=== PATIENT | female | born 2000 | race Caucasian/White ===

== ENCOUNTER 2023-01-31 16:56 | Inpatient (IN) | payer BC ==
[~2023-01-31] VITALS: Ht 170.2 cm; Wt 59.0 kg
[2023-01-31 17:32] VITALS: BP_SYST 96; PULSE 122; RESP 18; TEMP 100.9; O2SAT 97
[2023-01-31] MEDS ORDERED: cefTRIAXone 1 GM in D5W 50 ML IV ONE (17:45)
[2023-01-31] MEDS ORDERED: NACL 0.9% 1,000 ML IV ONE (17:45)
[2023-01-31] MEDS ORDERED: ONDANSETRON HCL 4 MG/2 ML VIAL IVP ONE (17:45)
[2023-01-31] MEDS ORDERED: ACETAMINOPHEN 500 MG TABLET PO ONE (17:45)
[2023-01-31 18:09] LABS: COVID19 ANTIGEN SOFIA FIA NEGATIVE (NEGATIVE)
[2023-01-31 18:10] LABS: INFLUENZA TYPE A Negative (NEGATIVE); INFLUENZA TYPE B NEGATIVE (NEGATIVE)
[2023-01-31 18:37] LABS: RED CELL DISTRIBUTION WIDTH 12.8 % (9.0-15.0)
[2023-01-31 18:52] LABS: ALANINE AMINOTRANSFERASE 42 U/L (12-78); ALBUMIN 3.1 g/dL (3.4-4.8); ANION GAP 7 (5-15); ASPARTATE AMINOTRANSFERASE 27 U/L (10-37); CALCIUM 8.5 mg/dL (8.4-11.0); CARBON DIOXIDE 27 mmol/L (23-29); CHLORIDE 99 mmol/L (98-107); CREATININE 0.84 mg/dL (0.55-1.30); GFR AFRICAN AMERICAN 109 mL/min (>90); GFR NON AFRICAN-AMERICAN 90 mL/min (>90); GLUCOSE 116 mg/dL (74-106); POTASSIUM 3.8 mmol/L (3.5-5.1); SODIUM SERUM 133 mmol/L (136-145); TOTAL BILIRUBIN 0.3 mg/dL (0.0-1.0); TOTAL PROTEIN, SERUM 6.4 g/dL (6.4-8.3); UREA NITROGEN, BLOOD 13 mg/dL (8-21)
[2023-01-31 18:55] LABS: HEMATOCRIT 37.8 % (36-48); HEMOGLOBIN 12.2 g/dL (12.0-16.0); MEAN CORPUSCULAR HEMOGLOBIN 27 pg (27-31); MEAN CORPUSCULAR HGB CONC 32 % (32-36); MEAN CORPUSCULAR VOLUME 82 fL (79.0-98.0); PLATELET COUNT (AUTO) 206 K/uL (130-430); WHITE BLOOD COUNT (AUTO) 17.6 K/uL (4.8-10.8)
[2023-01-31 19:14] LABS: BAND % (MANUAL) 8 % (0-6); BASOPHILS % (MANUAL) 0 % (0-2); EOSINOPHILS % (MANUAL) 0 % (0-7); LYMPHOCYTES % (MANUAL) 4 % (20-46); MONOCYTES % (MANUAL) 11 % (0-11)
[2023-01-31 19:15] LABS: PLATELET ESTIMATE ADEQUATE (ADEQUATE)
[2023-01-31 19:21] LABS: BILIRUBIN,URINE NEGATIVE (NEGATIVE); CLARITY/URINE CLEAR (CLEAR); COLOR,URINE YELLOW (YELLOW); GLUCOSE,URINE NEGATIVE (NEGATIVE); KETONES,URINE NEGATIVE (NEGATIVE); LEUKOCYTE ESTERASE ,URINE 1+ (NEGATIVE); NITRITE, URINE NEGATIVE (NEGATIVE); PROTEIN URINE 1+ (NEGATIVE)
[2023-01-31 19:31] LABS: BLOOD, URINE TRACE (NEGATIVE)
[2023-01-31 19:33] LABS: BACTERIA,URINE FEW /HPF (None Seen); MUCUS,URINE None Seen /LPF (None Seen); RBC,URINE NONE SEEN /HPF (0-3)
[2023-01-31] MEDS ORDERED: cefTRIAXone 1 GM IVPB PREMIX 50 ML IV ONE (19:45)
[2023-01-31] MEDS ORDERED: ACETAMINOPHEN 500 MG TABLET ONE (20:32)
[2023-01-31] MEDS ORDERED: ONDANSETRON HCL 4 MG/2 ML VIAL ONE (20:34)
[2023-01-31] MEDS ORDERED: ONDANSETRON HCL 4 MG/2 ML VIAL IVP PRN (23:00)
[2023-01-31 23:40] VITALS: BP_SYST 100; PULSE 86; RESP 17; TEMP 98.6; O2SAT 98
[2023-02-01] MEDS: LR 1,000 ML IV SCH ×3 (00:17→18:18)
[2023-02-01] MEDS: PIPERACILLIN/TAZO 3.375/DEX-IS 50 ML IV SCH ×4 (00:49→18:24)
[2023-02-01] MEDS: ACETAMINOPHEN 325 MG TABLET PO PRN ×5 (03:01→20:23)
[2023-02-01 05:54] LABS: HEMATOCRIT 33.3 % (36-48); HEMOGLOBIN 10.6 g/dL (12.0-16.0); LYMPHOCYTES # (AUTO) 0.5 K/uL (1.0-5.5); LYMPHOCYTES % (AUTO) 3.4 % (20.5-51.5); MEAN CORPUSCULAR HEMOGLOBIN 26 pg (27-31); MEAN CORPUSCULAR HGB CONC 32 % (32-36); MEAN CORPUSCULAR VOLUME 83 fL (79.0-98.0); MONOCYTES # (AUTO) 1.9 K/uL (0.0-1.0); MONOCYTES % (AUTO) 12.3 % (1.7-9.3); NEUTROPHILS # (AUTO) 12.7 K/uL (1.8-7.7); NEUTROPHILS % (AUTO) 84.3 % (40.0-70.0); PLATELET COUNT (AUTO) 185 K/uL (130-430); RED BLOOD CELL COUNT(AUTO) 4.02 MIL/uL (4.2-6.2); RED CELL DISTRIBUTION WIDTH 12.6 % (9.0-15.0); WHITE BLOOD COUNT (AUTO) 15.1 K/uL (4.8-10.8)
[2023-02-01 08:00] VITALS: BP_SYST 118; PULSE 84; RESP 18; TEMP 99; O2SAT 100; O2SAT 99
[2023-02-01 08:45] LABS: ALBUMIN 2.6 g/dL (3.4-4.8); CALCIUM 8.8 mg/dL (8.4-11.0); CREATININE 0.93 mg/dL (0.55-1.30); POTASSIUM 3.7 mmol/L (3.5-5.1); TOTAL BILIRUBIN 0.3 mg/dL (0.0-1.0); TOTAL PROTEIN, SERUM 5.5 g/dL (6.4-8.3)
[2023-02-01 12:00] VITALS: BP_SYST 122; PULSE 84; RESP 20; TEMP 99.9; O2SAT 99
[2023-02-01] MEDS ORDERED: HYDROcodone/ACETAMIN 5-325 MG TAB (NORCO/ VICODIN) PO PRN (12:30)
[2023-02-01] MEDS ORDERED: traMADol HCL HCL 50 MG TABLET (ULTRAM) PO ONE (12:30)
[2023-02-01] MEDS ORDERED: NALOXONE HCL 0.4 MG/ML AMP (NARCAN) IVP PRN (12:30)
[2023-02-01] MEDS: traMADol HCL HCL 50 MG TABLET (ULTRAM) PO PRN ×3 (12:37→18:39)
[2023-02-01 16:00] VITALS: BP_SYST 102; PULSE 71; RESP 20; TEMP 98.1; O2SAT 99
[2023-02-01 20:00] VITALS: BP_SYST 124; PULSE 79; RESP 22; TEMP 99.4; O2SAT 100; O2SAT 99
[2023-02-01] MEDS ORDERED: TEMAZEPAM 7.5 MG CAPSULE PO SCH (21:00)
[2023-02-02] VITALS (9 sets, daily range): BP systolic 116–134; PULSE 68–82; RESP 16–22; TEMP 98.2–102.8; O2SAT 99–100
[2023-02-02] MEDS: PIPERACILLIN/TAZO 3.375/DEX-IS 50 ML IV SCH ×5 (00:12→23:55)
[2023-02-02] MEDS: LR 1,000 ML IV SCH ×2 (01:44→15:00)
[2023-02-02] MEDS: ACETAMINOPHEN 325 MG TABLET PO PRN ×4 (03:00→22:19)
[2023-02-02] MEDS: traMADol HCL HCL 50 MG TABLET (ULTRAM) PO PRN ×3 (05:35→22:20)
[2023-02-02 06:55] LABS: BASOPHILS % (AUTO) 0.4 % (0.0-2.0); EOSINOPHILS % (AUTO) 0.1 % (0.0-4.0); LYMPHOCYTES # (AUTO) 1.3 K/uL (1.0-5.5); LYMPHOCYTES % (AUTO) 11.8 % (20.5-51.5); MEAN CORPUSCULAR HEMOGLOBIN 27 pg (27-31); MEAN CORPUSCULAR HGB CONC 32 % (32-36); MEAN CORPUSCULAR VOLUME 83 fL (79.0-98.0); MONOCYTES # (AUTO) 1.2 K/uL (0.0-1.0); MONOCYTES % (AUTO) 10.8 % (1.7-9.3); NEUTROPHILS # (AUTO) 8.8 K/uL (1.8-7.7); NEUTROPHILS % (AUTO) 76.9 % (40.0-70.0); PLATELET COUNT (AUTO) 210 K/uL (130-430); RED CELL DISTRIBUTION WIDTH 12.7 % (9.0-15.0); WHITE BLOOD COUNT (AUTO) 11.4 K/uL (4.8-10.8)
[2023-02-02 07:12] LABS: CALCIUM 8.8 mg/dL (8.4-11.0); CREATININE 0.78 mg/dL (0.55-1.30); POTASSIUM 3.8 mmol/L (3.5-5.1)
[2023-02-02] MEDS: TEMAZEPAM 15 MG CAPSULE PO SCH (21:24)
[2023-02-03] VITALS: BP_SYST 129; PULSE 83; RESP 17; TEMP 99.6; O2SAT 99
[2023-02-03 03:00] VITALS: TEMP 99.4
[2023-02-03] MEDS: traMADol HCL HCL 50 MG TABLET (ULTRAM) PO PRN ×3 (04:34→19:32)
[2023-02-03] MEDS: LR 1,000 ML IV SCH (04:34)
[2023-02-03] MEDS: PIPERACILLIN/TAZO 3.375/DEX-IS 50 ML IV SCH (05:37)
[2023-02-03 06:03] LABS: BASOPHILS % (AUTO) 0.2 % (0.0-2.0); EOSINOPHILS % (AUTO) 0.2 % (0.0-4.0); HEMATOCRIT 35.6 % (36-48); HEMOGLOBIN 11.1 g/dL (12.0-16.0); LYMPHOCYTES # (AUTO) 1.6 K/uL (1.0-5.5); MEAN CORPUSCULAR HEMOGLOBIN 26 pg (27-31); MEAN CORPUSCULAR HGB CONC 31 % (32-36); MEAN CORPUSCULAR VOLUME 83 fL (79.0-98.0); MONOCYTES # (AUTO) 1.6 K/uL (0.0-1.0); MONOCYTES % (AUTO) 12.7 % (1.7-9.3); NEUTROPHILS # (AUTO) 9.3 K/uL (1.8-7.7); PLATELET COUNT (AUTO) 262 K/uL (130-430); RED BLOOD CELL COUNT(AUTO) 4.29 MIL/uL (4.2-6.2); RED CELL DISTRIBUTION WIDTH 13.2 % (9.0-15.0); WHITE BLOOD COUNT (AUTO) 12.5 K/uL (4.8-10.8)
[2023-02-03 06:07] LABS: ALBUMIN 2.3 g/dL (3.4-4.8); CALCIUM 8.8 mg/dL (8.4-11.0); CREATININE 0.77 mg/dL (0.55-1.30); POTASSIUM 3.6 mmol/L (3.5-5.1); TOTAL BILIRUBIN 0.2 mg/dL (0.0-1.0); TOTAL PROTEIN, SERUM 5.7 g/dL (6.4-8.3)
[2023-02-03 07:11] LABS: NEUTROPHILS % (AUTO) 73.9 % (40.0-70.0)
[2023-02-03 07:18] LABS: ERYTHROCYTE SEDIMENTATION RATE 52 MM/HR (0-20)
[2023-02-03 08:00] VITALS: BP_SYST 125; PULSE 68; RESP 18; TEMP 99.1; O2SAT 100; O2SAT 98
[2023-02-03] MEDS: ACETAMINOPHEN 325 MG TABLET PO PRN ×2 (09:35→17:48)
[2023-02-03 12:00] VITALS: BP_SYST 112; PULSE 64; RESP 18; TEMP 98.4; O2SAT 100
[2023-02-03] MEDS ORDERED: LACTOBACILLUS RHAMNOSUS GG 1 CAP CAPSULE PO ONE (12:30)
[2023-02-03] MEDS ORDERED: AZITHROMYCIN 500 MG in NS 250 ML IV SCH (12:30)
[2023-02-03] MEDS ORDERED: CHOLECALCIFEROL (VITAMIN D3) 2,000 UNIT TABLET PO ONE (14:00)
[2023-02-03] MEDS: AZITHROMYCIN 500 MG in NS 250 ML IV SCH (15:45)
[2023-02-03 16:00] VITALS: BP_SYST 122; PULSE 74; RESP 16; TEMP 98.6; O2SAT 98
[2023-02-03 20:00] VITALS: BP_SYST 127; PULSE 72; RESP 18; TEMP 99.2; O2SAT 98
[2023-02-03] MEDS: LACTOBACILLUS RHAMNOSUS GG 1 CAP CAPSULE PO SCH (22:17)
[2023-02-03] MEDS: TEMAZEPAM 15 MG CAPSULE PO SCH (22:18)
[2023-02-04] VITALS: BP_SYST 130; PULSE 88; RESP 18; TEMP 98.9; O2SAT 99
[2023-02-04] MEDS: ACETAMINOPHEN 325 MG TABLET PO PRN ×2 (04:30→12:53)
[2023-02-04 05:41] LABS: BASOPHILS % (AUTO) 0.3 % (0.0-2.0); EOSINOPHILS # (AUTO) 0.1 K/uL (0.0-0.4); EOSINOPHILS % (AUTO) 1.4 % (0.0-4.0); HEMATOCRIT 35.1 % (36-48); HEMOGLOBIN 11.3 g/dL (12.0-16.0); LYMPHOCYTES # (AUTO) 2.1 K/uL (1.0-5.5); LYMPHOCYTES % (AUTO) 22.7 % (20.5-51.5); MEAN CORPUSCULAR HEMOGLOBIN 27 pg (27-31); MEAN CORPUSCULAR HGB CONC 32 % (32-36); MEAN CORPUSCULAR VOLUME 82 fL (79.0-98.0); MONOCYTES # (AUTO) 1.3 K/uL (0.0-1.0); MONOCYTES % (AUTO) 14.3 % (1.7-9.3); NEUTROPHILS # (AUTO) 5.6 K/uL (1.8-7.7); NEUTROPHILS % (AUTO) 61.3 % (40.0-70.0); PLATELET COUNT (AUTO) 293 K/uL (130-430); RED BLOOD CELL COUNT(AUTO) 4.28 MIL/uL (4.2-6.2); RED CELL DISTRIBUTION WIDTH 12.9 % (9.0-15.0); WHITE BLOOD COUNT (AUTO) 9.2 K/uL (4.8-10.8)
[2023-02-04 05:52] LABS: ALBUMIN 2.2 g/dL (3.4-4.8); CALCIUM 8.8 mg/dL (8.4-11.0); CREATININE 0.68 mg/dL (0.55-1.30); POTASSIUM 3.4 mmol/L (3.5-5.1); TOTAL BILIRUBIN 0.2 mg/dL (0.0-1.0); TOTAL PROTEIN, SERUM 5.8 g/dL (6.4-8.3)
[2023-02-04] MEDS: LR 1,000 ML IV SCH (06:59)
[2023-02-04 07:00] VITALS: O2SAT 99
[2023-02-04 09:00] VITALS: BP_SYST 127; PULSE 67; RESP 16; TEMP 98.7; O2SAT 98
[2023-02-04] MEDS ORDERED: CHOLECALCIFEROL (VITAMIN D3) 2,000 UNIT TABLET PO SCH (09:00)
[2023-02-04] MEDS: LACTOBACILLUS RHAMNOSUS GG 1 CAP CAPSULE PO SCH (10:08)
[2023-02-04] MEDS ORDERED: POTASSIUM CHLORIDE 20 MEQ TAB.PRT.SR PO ONE (12:15)
[2023-02-04] MEDS ORDERED: LEVO-62 PO (12:23)
[2023-02-04] MEDS: AZITHROMYCIN 500 MG in NS 250 ML IV SCH (13:36)
[2023-02-04 16:45] VITALS: BP_SYST 116; PULSE 67; RESP 18; TEMP 97; O2SAT 99
[2023-02-05 11:07] LABS: WEST NILE VIRUS, IgG, SERUM Negative (Negative)
== END 2023-02-04 17:00 | disposition home or self-care (01) | DRG 872 ==
LOC: SED 16:56 → SMU 22:24
PROVIDERS: ADMIT Internal Medicine; ATTEND Internal Medicine
DX: A41.9 Sepsis, unspecified organism (principal); N10 Acute pyelonephritis; E44.0 Moderate protein-calorie malnutrition; J20.9 Acute bronchitis, unspecified; Z20.822 Contact with and (suspected) exposure to COVID-19; J45.909 Unspecified asthma, uncomplicated; Z88.8 Allergy status to other drugs, medicaments and biological substances; Z79.899 Other long term (current) drug therapy; Z68.20 Body mass index [BMI] 20.0-20.9, adult; Z84.89 Family history of other specified conditions
CPT/HCPCS: 36415; 71045; 71046-TC; 76376; 76770; 80048; 80053; 81000; 81001; 81015; 83605; 84484; 84702; 85007; 85025; 85027; 85651-TC; 86788; 86789; 87040; 87086; 93005; 96361; 96365; 96375; 99285; J0456; J0696; J2405; J2543; J7050; J7060; Q0162